=== PATIENT | female | born 1995 ===

== ENCOUNTER 2024-11-09 08:54 | Outpatient (CLI) | payer BC, SELFPAY ==
[2024-11-11 02:12] LABS: HPV Source Cervix
== END 2024-11-09 08:55 | disposition home or self-care (01) ==
PROVIDERS: Visit Provider Physician Assistant
DX: Z12.4 Encounter for screening for malignant neoplasm of cervix (principal); Z11.51 Encounter for screening for human papillomavirus (HPV)
CPT/HCPCS: 87624; 87625; 88141; 88142